=== PATIENT | female | born 1940 | race Caucasian/White ===

== ENCOUNTER 2019-02-09 12:27 | Inpatient (IN) | payer MEDICARE ==
[2019-02-09] MEDS ORDERED: SODIUM CHLORIDE 0.9% 1,000 ML IV STA (13:32)
--- NOTE | 2019-02-09 13:35 | ED ---
General Adult HPI - General Chief complaint: Altered Mental Status Stated complaint: Confusion, poss Stroke Time Seen by Provider: 02/09/19 13:08 Source: patient Mode of arrival: ambulatory Limitations: no limitations - History of Present Illness Initial comments: Dictation was produced using Digiting dictation software. please excuse any grammatical, word or spelling errors. Chief Complaint: 78-year-old female presents today for forgetfulness. History of Present Illness: 78-year-old female presents today for altered mental status. She is brought in by grandson and . Patient has been increasingly forgetful for the last couple days. According grandson and patient has been having increasing moments of forgetfulness. For example, patient would be asking repetitive questions about them item that she supposedly put away. Patient is aware that she ask a lot of questions. Patient was recently diagnosed with iron deficiency anemia. She was given iron injections at her PCPs office. Patient denies any neck pain. No constitutional symptoms. Denies any focal neurologic deficits. The ROS documented in this emergency department record has been reviewed and confirmed by me. Those systems with pertinent positive or negative responses have been documented in the HPI. All other systems are other negative and/or noncontributory. PHYSICAL EXAM: General Impression: Alert and oriented x3, not in acute distress HEENT: Normocephalic atraumatic, extra-ocular movements intact, pupils equal and reactive to light bilaterally, mucous membranes moist, bilateral conjunctivitis Cardiovascular: Heart regular rate and rhythm, S1&S2 audible, no murmurs, rubs or gallops Chest: Lungs clear to auscultation bilaterally, no rhonchi, no wheeze, no rales Abdomen: Bowel sounds present, abdomen soft, non-tender, non-distended, no organomegaly Musculoskeletal: Pulses present and equal in all extremities, no peripheral edema Motor: no focal deficits noted Neurological: CN II-XII grossly intact, no focal motor or sensory deficits noted, no dysarthria, follows commands, no slurred speech Skin: Intact with no visualized rashes Psych: Normal affect and mood ED course: 78-year-old female presents with chief complaint of forgetfulness. Vital signs upon arrival are within acceptable limits Laboratory evaluation obtained. CBC is unremarkable. Hemoglobin stable. No leukocytosis. Metabolic panel shows sodium of 126, potassium 5.3, glucose of 106. Urinalysis is negative. Computed tomography scan of the brain shows no significant acute processes. There does appear to be moderate confluent changes of chronic small vessel ischemic disease. Given patient's degree of hyponatremia believe she'll benefit from short inpatient stay for sodium correction and repeat sodium level. Patient was given intravenous fluids. Patient began complaining about her conjunctivitis. More history was obtained concerning her bilateral conjunctivitis. She states that pain is worse in her right eye with light however she has conjunctivitis in both eyes. She reports improvement of her symptoms in the dark. She believes that this is from a recent iron supplementation. We will have ophthalmology on consult. - Related Data Allergies Allergy/AdvReac Type Severity Reaction Status Date / Time latex Allergy Unknown Verified 02/09/19 12:35 Sulfa (Sulfonamide Allergy Unknown Verified 02/09/19 12:35 Antibiotics) Review of Systems ROS Statement: Those systems with pertinent positive or pertinent negative responses have been documented in the HPI. ROS Other: All systems not noted in ROS Statement are negative. Past Medical History Past Medical History: Asthma, Hypertension, Thyroid Disorder History of Any Multi-Drug Resistant Organisms: None Reported Past Surgical History: Orthopedic Surgery Past Psychological History: No Psychological Hx Reported Smoking Status: Never smoker Past Alcohol Use History: Occasional Past Drug Use History: None Reported General Exam Limitations: no limitations Course Vital Signs 02/09/19 12:32 Temperature 97.8 F Pulse Rate 95 Respiratory 19 Rate Blood Pressure 127/80 O2 Sat by Pulse 95 Oximetry Medical Decision Making - Lab Data Result diagrams: 02/09/19 13:40 02/09/19 13:40 Lab Results 02/09/19 02/09/19 02/09/19 Range/Units 13:40 13:40 13:40 WBC 7.3 (3.8-10.6) k/uL RBC 3.20 L (3.80-5.40) m/uL Hgb 11.0 L (11.4-16.0) gm/dL Hct 32.9 L (34.0-46.0) % MCV 102.7 H (80.0-100.0) fL MCH 34.4 (25.0-35.0) pg MCHC 33.5 (31.0-37.0) g/dL RDW 12.8 (11.5-15.5) % Plt Count 548 H (150-450) k/uL Neutrophils % 73 % Lymphocytes % 17 % Monocytes % 5 % Eosinophils % 2 % Basophils % 0 % Neutrophils # 5.3 (1.3-7.7) k/uL Lymphocytes # 1.3 (1.0-4.8) k/uL Monocytes # 0.3 (0-1.0) k/uL Eosinophils # 0.1 (0-0.7) k/uL Basophils # 0.0 (0-0.2) k/uL Macrocytosis Slight Sodium 126 L (137-145) mmol/L Potassium 5.3 H (3.5-5.1) mmol/L Chloride 92 L (98-107) mmol/L Carbon Dioxide 26 (22-30) mmol/L Anion Gap 8 mmol/L BUN 14 (7-17) mg/dL Creatinine 0.74 (0.52-1.04) mg/dL Est GFR (CKD-EPI)AfAm 90 (>60 ml/min/1.73 sqM) Est GFR (CKD-EPI)NonAf 78 (>60 ml/min/1.73 sqM) Glucose 106 H (74-99) mg/dL Plasma Lactic Acid Keo 1.1 (0.7-2.0) mmol/L Calcium 9.0 (8.4-10.2) mg/dL Magnesium 2.1 (1.6-2.3) mg/dL Urine Color Urine Appearance (Clear) Urine pH (5.0-8.0) Ur Specific [place] (1.001-1.035) Urine Protein (Negative) Urine Glucose (UA) (Negative) Urine Ketones (Negative) Urine Blood (Negative) Urine Nitrite (Negative) Urine Bilirubin (Negative) Urine Urobilinogen (<2.0) mg/dL Ur Leukocyte Esterase (Negative) 02/09/19 Range/Units 14:35 WBC (3.8-10.6) k/uL RBC (3.80-5.40) m/uL Hgb (11.4-16.0) gm/dL Hct (34.0-46.0) % MCV (80.0-100.0) fL MCH (25.0-35.0) pg MCHC (31.0-37.0) g/dL RDW (11.5-15.5) % Plt Count (150-450) k/uL Neutrophils % % Lymphocytes % % Monocytes % % Eosinophils % % Basophils % % Neutrophils # (1.3-7.7) k/uL Lymphocytes # (1.0-4.8) k/uL Monocytes # (0-1.0) k/uL Eosinophils # (0-0.7) k/uL Basophils # (0-0.2) k/uL Macrocytosis Sodium (137-145) mmol/L Potassium (3.5-5.1) mmol/L Chloride (98-107) mmol/L Carbon Dioxide (22-30) mmol/L Anion Gap mmol/L BUN (7-17) mg/dL Creatinine (0.52-1.04) mg/dL Est GFR (CKD-EPI)AfAm (>60 ml/min/1.73 sqM) Est GFR (CKD-EPI)NonAf (>60 ml/min/1.73 sqM) Glucose (74-99) mg/dL Plasma Lactic Acid Keo (0.7-2.0) mmol/L Calcium (8.4-10.2) mg/dL Magnesium (1.6-2.3) mg/dL Urine Color Light Yellow Urine Appearance Clear (Clear) Urine pH 6.0 (5.0-8.0) Ur Specific [place] 1.004 (1.001-1.035) Urine Protein Negative (Negative) Urine Glucose (UA) Negative (Negative) Urine Ketones Negative (Negative) Urine Blood Negative (Negative) Urine Nitrite Negative (Negative) Urine Bilirubin Negative (Negative) Urine Urobilinogen <2.0 (<2.0) mg/dL Ur Leukocyte Esterase Negative (Negative) Disposition Clinical Impression: Hyponatremia Disposition: ADMITTED IP TO THIS HOSP Condition: Fair Referrals: Hua Estrella MD [Primary Care Provider] - 1-2 days Decision Time: 15:28
--- NOTE | 2019-02-09 13:50 | XR ---
EXAMINATION TYPE: XR chest 1V portable DATE OF EXAM: 02/09/2019 Comparison: None Clinical History: 78-year-old female confusion, altered mental status Findings: Heart normal size. Tortuosity versus ectasia of the thoracic aorta. Mild interstitial prominence of t he chronic appearance. Strandy atelectasis right lower lung. No consolidation or pleural effusion. Impression: Chronic-appearing changes. Tortuous versus ectatic thoracic aorta. No definite acute cardiopulmonary process.
[2019-02-09 13:54] LABS: Basophils % (A) 0 %; Eosinophils # (A) 0.1 k/uL (0-0.7); Eosinophils % (A) 2 %; HCT 32.9 % (34.0-46.0); Lymphocytes # (A) 1.3 k/uL (1.0-4.8); Lymphocytes % (A) 17 %; MCH 34.4 pg (25.0-35.0); MCHC 33.5 g/dL (31.0-37.0); MCV 102.7 fL (80.0-100.0); Macrocytosis Slight; Monocytes # (A) 0.3 k/uL (0-1.0); Monocytes % (A) 5 %; Neutrophils # (A) 5.3 k/uL (1.3-7.7); Neutrophils % (A) 73 %; Platelet Count 548 k/uL (150-450); RDW 12.8 % (11.5-15.5); WBC 7.3 k/uL (3.8-10.6)
[2019-02-09 13:59] LABS: Magnesium 2.1 mg/dL (1.6-2.3); Potassium 5.3 mmol/L (3.5-5.1)
--- NOTE | 2019-02-09 14:19 | CT ---
EXAMINATION TYPE: CT brain wo con DATE OF EXAM: 02/09/2019 COMPARISON: None HISTORY: 78-year-old female Confusion, possible stroke TECHNIQUE: Examination was done in axial plane without intravenous contrast. Coronal and sagittal r econstructions performed. CT DLP: 1091.4 mGycm Automated exposure control for dose reduction was used. FINDINGS: There is no evidence of acute intracranial hemorrhage, acute ischemic changes, mass, mass-effect, or extra-axial fluid collection. There is no effacement of cerebral sulci or basal subarachnoid cister ns. There is no hydrocephalus. There is no midline shift. Carrera-white matter distinction is preserv ed. Partially empty sella. Moderate confluent white matter hypodensities in both cerebral hemispheres. Paranasal sinuses and mastoid air cells well pneumatized. Orbits and globes are intact. IMPRESSION: Moderate confluent changes of chronic small vessel ischemic disease. No acute intracranial abnormalit y seen. If concern for subtle acute ischemia, follow-up MRI.
[2019-02-09 15:01] LABS: Appearance,Urine Clear (Clear); Bilirubin,Urine Negative (Negative); Blood,Urine Negative (Negative); Color,Urine Light Yellow; Glucose,Urine (UA) Negative (Negative); Ketones,Urine Negative (Negative); Leukocyte Esterase,Urine Negative (Negative); Nitrite,Urine Negative (Negative); Protein,Urine Negative (Negative); Specific Gravity,Urine 1.004 (1.001-1.035); Urobilinogen,Urine <2.0 mg/dL (<2.0)
[2019-02-09] MEDS ORDERED: ONDANSETRON 4 MG/2 ML VIAL IVP PRN (15:28)
[2019-02-09] MEDS ORDERED: ACETAMINOPHEN TAB 325 MG TAB PO PRN (15:28)
[2019-02-09] MEDS ORDERED: NALOXONE 0.4 MG/ML 1 ML VIAL IV PRN (15:28)
[2019-02-09] MEDS ORDERED: SODIUM CHLORIDE 0.9% 1,000 ML IV SCH (15:30)
[2019-02-09] MEDS ORDERED: ARTIFICIAL TEARS OINTMENT 3.5 GM TUBE BOTH EYES PRN (16:25)
[2019-02-09] MEDS ORDERED: ALBUTEROL NEBULIZED 2.5 MG/3 ML INHALATION PRN (16:28)
--- NOTE | 2019-02-09 17:25 | P.HPIM ---
History of Present Illness Chief Complaint: Generalized weakness 78 year female with history of hypertension and hypothyroidism who complains of generalized weakness. Her history starts last week when she was feeling increasingly weak and low vega rgy low stamina. She did not have any chest pain shortness of breath nausea vomiting diarrhea fever chills URI like symptoms or dysuria. She went to her primary care physician where basic blood work was done. 4 days prior to this admission she was told that her iron and sodium is low and she received infusion of iron in her PCPs office. Day prior to this, this last weekend she started developing some scratchy feeling in her left eye and next morning she woke up with both eye redness itchiness scratchiness discomfort and drainage of clear fluid. There is no any purulent drainage. There is no crusting. There is no pain in the eyes. There is no vision changes. She denied any malaise or sore throat any other symptoms. Since her symptoms persisted her family was concerned and brought her to emergency Department. Per them they feel that over the last week or so patient also became forgetful and appears very weak. Patient herself denies any forgetfulness or any confusion. She is orientated to time and date. Next blood work in emergency department show sodium 126. Glucose was very mildly elevated. Labwork about a week ago and PCPs office show sodium 123. Patient is on levothyroxine. TSH was not checked. She also had elevated sedimentation rate is 73. Mild stable anemia. CT of the head showed microvascular disease no acute changes. Patient denies any new medications or changes in those medications. She reports drinking one whiskey every other day otherwise. She denies any leg weakness tremors orthostatic lightheadedness. Patient denies any vision changes. Patient denies any headache orthostatic lightheadedness. She denies any musculoskeletal pain or muscle soreness or weakness. Review of Systems Review of system was performed and is negative except mentioned in HPI Past Medical History Past Medical History: Asthma, Hypertension, Thyroid Disorder History of Any Multi-Drug Resistant Organisms: None Reported Past Surgical History: Orthopedic Surgery Past Psychological History: No Psychological Hx Reported Smoking Status: Never smoker Past Alcohol Use History: Occasional Past Drug Use History: None Reported Medications and Allergies Home Medications Medication Instructions Recorded Confirmed Type Albuterol Inhaler [Ventolin Hfa 2 puff INHALATION RT-Q4H PRN 02/09/19 02/09/19 History Inhaler] Ascorbic Acid [Vitamin C] 500 mg PO DAILY PRN 02/09/19 02/09/19 History Fluticasone/Salmeterol [Advair 1 puff INHALATION RT-BID 02/09/19 02/09/19 History 100-50 Diskus] Ibuprofen [Motrin] 800 mg PO TID PRN 02/09/19 02/09/19 History Levothyroxine Sodium [Synthroid] 150 mcg PO DAILY 02/09/19 02/09/19 History Lisinopril [Zestril] 20 mg PO DAILY 02/09/19 02/09/19 History Magnesium Citrate 150mg 150 mg PO DAILY 02/09/19 02/09/19 History Papaya [Papaya Enzyme] 1 tab PO AC-TID 02/09/19 02/09/19 History Wheat Dextrin [Benefiber] 1 packet PO DAILY 02/09/19 02/09/19 History Allergies Allergy/AdvReac Type Severity Reaction Status Date / Time latex Allergy Rash/Hives Verified 02/09/19 16:10 Sulfa (Sulfonamide Allergy Rash/Hives Verified 02/09/19 16:10 Antibiotics) Physical Exam Vitals: Vital Signs Temp Pulse Resp BP Pulse Ox 02/09/19 12:32 97.8 F 95 19 127/80 95 Intake and Output 02/09/19 02/09/19 02/09/19 06:59 14:59 22:59 Other: Weight 72.575 kg Vital Signs: I have reviewed the vital signs. GENERAL: Well-nourished, Well-developed , no apparent distress, cooperative Eyes: PERRL, extraoculry movements intact, conjunctiva is diffusely red without any suffusion, pupils are round and reactive to light bilaterally, there is no any mucopurulent or any other exudates, no foreign bodies, extraocular movements could not elicit any pain, she does not have any significant photophobia, periorbital tissues are not swollen red or inflamed Head: : Atraumatic external nose and ears, oropharyngeal mucosa is moist without lesions or exudates Neck: Symmetric, trachea midline, No thyromegaly, no masses or neck vain pulsation, no neck rigidity CVS: +S1/S2, No murmurs or gallops. Peripheral pulses 2+ and equal in all extremities. RESP: Unlabored respiratory effort. Clear to auscultation bilaterally. Abdomen: Bowel sounds present in all 4 quadrants, Soft to palpation, Nontender/Nondistended, No hepatosplenomegaly, no hernias or masses, no CVA tnderness Musculoskeletal: Extremities w/o deformity, No cyanosis or clubbing, no joint swelling Skin: Warm, Dry. 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, motor strenght 5/5 i upper and lower extremities, no clonus, patellar DTRs 2+ and sympetrical Psych: Awake, Alert, & Oriented (AAO) x3 Appropriate mood and affect Results CBC & Chem 7: 02/09/19 13:40 02/09/19 13:40 Labs: Abnormal Lab Results - Last 24 Hours (Table) 02/09/19 02/09/19 Range/Units 13:40 13:40 RBC 3.20 L (3.80-5.40) m/uL Hgb 11.0 L (11.4-16.0) gm/dL Hct 32.9 L (34.0-46.0) % MCV 102.7 H (80.0-100.0) fL Plt Count 548 H (150-450) k/uL Sodium 126 L (137-145) mmol/L Potassium 5.3 H (3.5-5.1) mmol/L Chloride 92 L (98-107) mmol/L Glucose 106 H (74-99) mg/dL Assessment and Plan Assessment: This is a 78-year-old female who is presenting with progressive generalized weakness and slowing of mentation. Her sodium is low and she has history of hypothyroidism. Her neurological exam is nonfocal. She has a very good recall on 3 objects and count is down from 100 subtracting by 3 without any issues. She is alert and awake oriented 3. She has microvascular disease on the CAT scan of the head. 1. generalized weakness Clinically appears to be due to hyponatremia, rule out any underlying end ocrinological or metabolic or rheumatological process I discussed with family in detail. We will try to address and correct her hyponatremia as possible cause of generalized weakness. Workup of hyponatremia will include serum and urine osmolarity, urine sodium and potassium, obviously TSH and cortisol level. I do not see any thiazides all her home medication list or the family started me that she is on Hyzaar normally. Patient has mild hyperkalemia. Bicarbonate level is normal. We did order a.m. cortisol. Her vital signs have been stable as well. Patient does not appear septic. Family was inquiring about possibility of neurological etiology behind her generalized weakness. I explained him that we do not have neurological consultation currently in the hospital. I explained him that I would like to go down the Route of correcting her electrolyte possibly other metabolic or endocrinological abnormalities and then to reevaluate the patient. Her immediate imaging and neurological exam is nonfocal Nephrology has been consulted to assist with hyponatremia Patient was started on normal saline emergency department, I will continue this at slightly lower rate and check her sodium today to see how she is responding to fluids A part of the concern is patient's elevated sedimentation rate last week on the blood work at her PCPs office. She does not have any headache or musculoskeletal pain. Except conjunctivitis no obvious focal infections I will repeat her sedimentation rate and CPR 2. Conjunctivitis History of physical exam consistent more with conjunctival involvement. Suspect viral conjunctivitis. Swab for cultures has been ordered eye decongestion and lubricants ordered Ophthalmology has been consulted 3. Hypothyroidism Continue home levothyroxine Obviously we'll check her TSH in the setting of new hyponatremia 4. Hypertension Blood pressure has been stable We will hold EVITA inhibitor for now 5. Possible dementia Patient did quite well on the quick recall test She has microvascular disease the CT of the brain Neurologic exam is nonfocal no rigidity no involuntary movements Once we correct sodium patient will be reevaluated and I would defer patient for neurological follow-up was on outpatient basis 6. Anemia Recently found to have iron deficiency and receive iron infusion and referred for EGD and colonoscopy No actively clinically signs of bleeding I will check B12 since MCV slightly elevated Patient is a full code is surrogate decision maker 2 or more midnights stay may be expected In discussing detailed plan of care with patient's family including her , daughter and grandson.
[2019-02-09] MEDS: SODIUM CHLORIDE 0.9% 1,000 ML IV SCH ×2 (17:42→20:36)
[2019-02-09 18:35] LABS: T4, Free (Free Thyroxine) 1.15 ng/dL (0.78-2.19)
[2019-02-09] MEDS ORDERED: ARTIFICIAL TEARS-HYPROMELLOSE DROPS 15 ML BTL BOTH EYES PRN (19:25)
--- NOTE | 2019-02-09 19:35 | P.CON ---
Consult Note - . Consult date: 02/09/19 Assessment/Plan:: 78 y/o female with new onset of discomfort and photophobia for the last 3 days in the left eye. The eye has been red and irritated. She denies any injury or discharge or recent URI. There is no previous eye surgery in either eye or unde rlying eye problems. She last saw her director web 2 months ago for an update in glasses. Va w/correction 20/25+3, OD 20/20-2 OS IOP: @ 1900 tonopen, 07 mm Hg OD, 13 mm Hg OS Ext: unremarkable. PA nodes and SM nodes smooth EOM: full conj: trace injection OD, 1+ ciliary flush left. Cornea: clear with SPk 2+ using fluorescein AC: D&Q OD, trace cell OS Iris: miosis, OS? nondilated fundus: Vit: PVD OU fundus: grossly normal A: 1) OS iritis, unknown etiology 2) dry eye, with SPK OU, P: 1) begin topical steroid treatment in left eye 2) add topical artificial tears frequently and regularly 3) when discharged recommend follow up in office early next week. 4) thank you for this consultation.
[2019-02-09] MEDS: NAPHAZOLINE-PHENIRA 0.025-0.3% DROPS 15 ML BTL BOTH EYES SCH (20:31)
[2019-02-09 20:36] LABS: Calcium 8.7 mg/dL (8.4-10.2); Potassium 4.7 mmol/L (3.5-5.1)
[2019-02-09] MEDS: prednisoLONE ACETATE 1% OPHTH DROPS 5 ML BTL LEFT EYE SCH (20:40)
[2019-02-09] MEDS: SYMBICORT 80-4.5 MCG INHALER INHALATION SCH (21:29)
[2019-02-10] MEDS: prednisoLONE ACETATE 1% OPHTH DROPS 5 ML BTL LEFT EYE SCH ×5 (00:23→23:37)
[2019-02-10] MEDS: LEVOTHYROXINE 75 MCG TAB PO SCH (06:11)
[2019-02-10] MEDS: SYMBICORT 80-4.5 MCG INHALER INHALATION SCH ×2 (07:12→19:17)
[2019-02-10] MEDS: NAPHAZOLINE-PHENIRA 0.025-0.3% DROPS 15 ML BTL BOTH EYES SCH (08:33)
[2019-02-10 09:07] LABS: African American GFR (CKD) >90 (>60 ml/min/1.73 sqM); Anion Gap 7 mmol/L; Blood Urea Nitrogen 9 mg/dL (7-17); C Reactive Protein 49.4 mg/L (<10.0); Calcium 8.8 mg/dL (8.4-10.2); Carbon Dioxide 26 mmol/L (22-30); Chloride 94 mmol/L (98-107); Glucose 102 mg/dL (74-99); Non-African American GFR(CKD) 82 (>60 ml/min/1.73 sqM); Potassium 5.5 mmol/L (3.5-5.1); Sodium 127 mmol/L (137-145)
--- NOTE | 2019-02-10 09:33 | P.PN ---
Subjective Patient is doing well this morning. sHe denies any weakness or malaise. Given that her inflammatory markers are quite elevated and in conjunction with wood club neck whipper diagnosis of anterior uveitis with went over any musculoskeletal or GI symptomatology especially in view of recently diagnosed iron deficiency without any overt bleeding. Patient denies any abdominal bloating, pain or diarrhea or blood in the stool or vomiting. She denies any history of GI problems in the family. She denies any joint swelling or morning stiffness. Denies any headaches or jaw claudications. She reports stable weight and appetite without any significant weight loss. Denies any night sweats. Her sodium is slowly improving, she has resistant mild hyperkalemia and bicarbs has been stable. Objective - Vital Signs Vital signs: Vital Signs Temp 98.4 F 02/10/19 05:00 Pulse 85 02/10/19 05:00 Resp 18 02/10/19 05:00 BP 118/73 02/10/19 05:00 Pulse Ox 97 02/10/19 05:00 Intake & Output 02/09/19 02/10/19 02/10/19 18:59 06:59 18:59 Intake Total 390 850 Balance 390 850 Weight 72.575 kg Intake: Oral 390 850 Other: Voiding Method Toilet # Voids 2 1 # Bowel Movements 1 - Exam Vital Signs: I have reviewed the vital signs. GENERAL: Well-nourished, Well-developed , no apparent distress, cooperative Eyes: PERRL, extraoculry movements intact, clear conjunctiva Head: : Atraumatic external nose and ears, oropharyngeal mucosa is moist without lesions or exudates Neck: Symmetric, trachea midline, No thyromegaly, no masses or neck vain pulsation, no neck rigidity CVS: +S1/S2, No murmurs or gallops. Peripheral pulses 2+ and equal in all extremities. RESP: Unlabored respiratory effort. Clear to auscultation bilaterally. Abdomen: Bowel sounds present in all 4 quadrants, Soft to palpation, Nontender/Nondistended, No hepatosplenomegaly, no hernias or masses, no CVA tnderness Musculoskeletal: Extremities w/o deformity, No cyanosis or clubbing, no joint swelling Skin: Warm, Dry. 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, motor strenght 5/5 i upper and lower extremities, no clonus, patellar DTRs 2+ and sympetrical Psych: Awake, Alert, & Oriented (AAO) x3 Appropriate mood and affect - Labs CBC & Chem 7: 02/09/19 13:40 02/10/19 07:59 Labs: Abnormal Lab Results - Last 24 Hours (Table) 02/09/19 02/09/19 02/09/19 Range/Units 13:14 13:40 13:40 RBC 3.20 L (3.80-5.40) m/uL Hgb 11.0 L (11.4-16.0) gm/dL Hct 32.9 L (34.0-46.0) % MCV 102.7 H (80.0-100.0) fL Plt Count 548 H (150-450) k/uL Sodium 126 L (137-145) mmol/L Potassium 5.3 H (3.5-5.1) mmol/L Chloride 92 L (98-107) mmol/L Glucose 106 H (74-99) mg/dL Osmolality 264 L (280-301) mosm/kg C-Reactive Protein (<10.0) mg/L TSH 6.320 H (0.465-4.680) mIU/L 02/09/19 02/10/19 Range/Units 19:55 07:59 RBC (3.80-5.40) m/uL Hgb (11.4-16.0) gm/dL Hct (34.0-46.0) % MCV (80.0-100.0) fL Plt Count (150-450) k/uL Sodium 128 L 127 L (137-145) mmol/L Potassium 5.5 H (3.5-5.1) mmol/L Chloride 95 L 94 L (98-107) mmol/L Glucose 113 H 102 H (74-99) mg/dL Osmolality (280-301) mosm/kg C-Reactive Protein 49.4 H (<10.0) mg/L TSH (0.465-4.680) mIU/L Assessment and Plan Assessment: 1. generalized weakness This is much improved Given the constellation of hyponatremia and mild hyperkalemia, anterior uveitis, elevated CRP and sedimentation rate I had a lengthy discussion with the patient and her about possibility of more systemic inflammatory illness in form of rheumatological or malignancy. We also discussed possibility of underlying endocrinological problem like adrenal. Plan is to continue treatment for hyponatremia as per nephrology recommendation Serum cortisol, aldosterone and renin activity pending Nothing clinically indicated presence of inflammatory bowel disease or seronegative arthropathy. I recommended patient to have a follow-up on outpatient basis with rheumatology upon discharge. She is already being scheduled for EGD and colonoscopy due to iron deficiency. Gender and age appropriate malignancy screening to be conducted to [facility] office. Check TTG IgA. 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 Discontinue Naphcon A 3. Hypothyroidism Continue home levothyroxine TSH is at acceptable level for patient age. Would recommend repeating TSH in 4- 6 weeks to assure stability. 4. Hypertension Blood pressure has been stable 5. Possible dementia Patient did quite well on the quick recall test She has microvascular disease the CT of the brain Neurologic exam is nonfocal no rigidity no involuntary movements Once we correct sodium patient will be reevaluated and I would defer patient for neurological follow-up was on outpatient basis Speech therapist consulted for cognitive evaluation 6. Anemia Recently found to have iron deficiency and receive iron infusion and referred for EGD and colonoscopy No actively clinically signs of bleeding I will check B12 since MCV slightly elevated Discharge planning in 1-2 days based on the sodium correction
--- NOTE | 2019-02-10 10:46 | P.NPCON ---
History of Present Illness - Reason for Consult hyponatremia - History of Present Illness Reason for consultation: Hyponatremia History of present illness: Patient is a 78-year-old female seen in renal consultation for hyponatremia. Patient presented to the hospital with generalized weakness. Patient states her legs felt weak and she was able to get off from her chair. She denies losing consciousness. No falls or syncopal episodes. Patient's sodium level was 126 on admission and did improve to 128 as of yesterday evening at 8 PM. This morning sodium level is stable at 127. Patient is maintained on normal saline at 75 mL an hour. She did receive 1 L bolus of normal saline on admission. Anne Marie prado states she does drink quite a bit of fluids including water and coffee. Her oral intake has been fair. She doesn't like to eat meats. Denies vomiting or diarrhea. Admits to good urine output. No hematuria or dysuria. Denies taking any thiazide diuretics. She denies use of nonsteroidals. No history of malignancy. She does have history of hypothyroidism and is maintained on Synthroid. Hemodynamically she is stable. No significant hypotension. GFR is at baseline. Denies family history of renal disease. Vital signs are stable. General: The patient appeared well nourished and normally developed. HEENT: Head exam is unremarkable. Neck is without jugular venous distension. LUNGS: Lungs are clear to auscultation and percussion. Breath sounds decreased. HEART: Rate and Rhythm are regular. First and second heart sounds normal. No murmurs, rubs or gallops. ABDOMEN: Abdominal exam reveals normal bowel sounds. Non-tender and non- distended. No evidence of peritonitis. EXTREMITITES: No clubbing, cyanosis, or edema. Past Medical History Past Medical History: Asthma, Hypertension, Thyroid Disorder History of Any Multi-Drug Resistant Organisms: None Reported Past Surgical History: Orthopedic Surgery Additional Past Surgical History / Comment(s): lt knee replacement Past Anesthesia/Blood Transfusion Reactions: No Reported Reaction Additional Past Anesthesia/Blood Transfusion Reaction / Comment(s): No blood products!!!!!!!!!!!!! Past Psychological History: No Psychological Hx Reported Smoking Status: Never smoker Past Alcohol Use History: Occasional Past Drug Use History: None Reported - Past Family History Son(s) Family Medical History: Diabetes Mellitus Medications and Allergies Home Medications Medication Instructions Recorded Confirmed Type Albuterol Inhaler [Ventolin Hfa 2 puff INHALATION RT-Q4H PRN 02/09/19 02/09/19 History Inhaler] Ascorbic Acid [Vitamin C] 500 mg PO DAILY PRN 02/09/19 02/09/19 History Fluticasone/Salmeterol [Advair 1 puff INHALATION RT-BID 02/09/19 02/09/19 History 100-50 Diskus] Ibuprofen [Motrin] 800 mg PO TID PRN 02/09/19 02/09/19 History Levothyroxine Sodium [Synthroid] 150 mcg PO DAILY 02/09/19 02/09/19 History Lisinopril [Zestril] 20 mg PO DAILY 02/09/19 02/09/19 History Magnesium Citrate 150mg 150 mg PO DAILY 02/09/19 02/09/19 History Papaya [Papaya Enzyme] 1 tab PO AC-TID 02/09/19 02/09/19 History Wheat Dextrin [Benefiber] 1 packet PO DAILY 02/09/19 02/09/19 History Allergies Allergy/AdvReac Type Severity Reaction Status Date / Time latex Allergy Rash/Hives Verified 02/09/19 16:10 Sulfa (Sulfonamide Allergy Rash/Hives Verified 02/09/19 16:10 Antibiotics) Physical Exam Vitals: Vital Signs Temp Pulse Pulse Resp BP BP Pulse Ox 02/10/19 05:00 98.4 F 85 18 118/73 97 02/09/19 21:00 98.5 F 91 18 143/81 100 02/09/19 12:32 97.8 F 95 19 127/80 95 Intake and Output 02/09/19 02/10/19 02/10/19 22:59 06:59 14:59 Intake Total 790 450 Balance 790 450 Intake: Oral 790 450 Other: Voiding Method Toilet # Voids 1 2 1 # Bowel Movements 1 Weight 72.575 kg Results - Lab Results Most recent lab results Calcium 8.8 mg/dL (8.4-10.2) 02/10/19 07:59 Magnesium 2.1 mg/dL (1.6-2.3) 02/09/19 13:40 02/09/19 13:40 02/10/19 07:59 Assessment and Plan Plan: Assessment: 1. Hypotonic hyponatremia. Mildly hypovolemic and initially improved with IV fluids from 126 to 128. It is 127 this morning. Cortisol level noted to be normal this morning. TSH mildly elevated and is currently maintained on Synthroid. Urine osmolality noted to be low at 156. 2. Hypothyroidism maintained on Synthroid. 3. Benign hypertension. Controlled. 4. Mild hyperkalemia secondary to use of lisinopril. Plan: 1200 mL fluid restriction. Encourage oral intake, including protein. Add ensure 3 times daily. Hep-Lock IV fluids. Repeat electrolytes in the morning. Check urine sodium and uric acid level. Thank you for the consultation. I will continue to follow the patient with you during her hospital stay.
[2019-02-10 11:07] LABS: Urine Alcohol Negative (Negative); Urine Barbiturate Negative (Negative); Urine Cocaine Negative (Negative); Urine Methadone Negative (Negative); Urine Opiates Negative (Negative); Urine Phencyclidine Negative (Negative)
[2019-02-10 18:09] LABS: African American GFR (CKD) >90 (>60 ml/min/1.73 sqM); Anion Gap 7 mmol/L; Blood Urea Nitrogen 15 mg/dL (7-17); Calcium 9.1 mg/dL (8.4-10.2); Carbon Dioxide 29 mmol/L (22-30); Chloride 95 mmol/L (98-107); Glucose 123 mg/dL (74-99); Non-African American GFR(CKD) 83 (>60 ml/min/1.73 sqM); Potassium 5.1 mmol/L (3.5-5.1); Sodium 131 mmol/L (137-145)
[2019-02-11] MEDS: prednisoLONE ACETATE 1% OPHTH DROPS 5 ML BTL LEFT EYE SCH ×3 (06:21→17:35)
[2019-02-11] MEDS: LEVOTHYROXINE 75 MCG TAB PO SCH (06:22)
[2019-02-11 08:37] LABS: Magnesium 2.3 mg/dL (1.6-2.3); Potassium 5.4 mmol/L (3.5-5.1)
[2019-02-11] MEDS: SYMBICORT 80-4.5 MCG INHALER INHALATION SCH (10:06)
--- NOTE | 2019-02-11 10:24 | P.PN ---
Subjective Summary: Patient 78-year-old female without significant past medical history presented due to worsening fatigue, generalized weakness , mild confusion and bilateral red eyes. She was found to have sodium of 126. 2 days prior to the admission sodium in her PCP office was 123. She did not appear grossly dehydrated. She was not on any particular medications associated with hyponatremia. She did not have any particular focal complaints or symptoms. She reports drinking at least 4 small bottles of water. She does not eat much of meat cheese and eggs or drink milk. She was recently diagnosed with iron deficiency and scheduled for colonoscopy. She was started on normal saline with slow improvement in her sodium. Interval history: Patient sodium is 130 this morning. She reports good urine output. She reports that her energy level is much better and per family she seems to be at baseline. We had a lengthy discussion about patient's plan of care. I entertained with the family my concern over her high sedimentation rate. Given the patient does not have any particular focal symptoms or complaints I advised patient and her family in the room that patient needs close follow-up with nephrology an PCP and outpatient and further investigation about her low sodium and elevated sedime ntation rate. She will have colonoscopy soon. Also recommended mammogram. Also given the history of smoking I recommended patient to obtain CT of the chest abdomen and pelvis with her PCP on outpatient basis. Also recommended follow-up with rheumatology and repeat sedimentation rate and CRP. Also patient was advised to decrease amount of water that she's drinking at home and to increase protein intake by adding one or 2 Ensures per day, 3 to more milk cheese meat and eggs. Objective - Vital Signs Vital signs: Vital Signs Temp 98.2 F 02/11/19 05:26 Pulse 83 02/11/19 05:26 Resp 15 02/11/19 05:26 BP 107/65 02/11/19 05:26 Pulse Ox 95 02/11/19 05:26 Intake & Output 02/10/19 02/11/19 02/11/19 18:59 06:59 18:59 Other: Voiding Method Toilet # Voids 2 1 - Exam Vital Signs: I have reviewed the vital signs. GENERAL: Well-nourished, Well-developed , no apparent distress, cooperative Eyes: PERRL, extraoculry movements intact, clear conjunctiva Head: : Atraumatic external nose and ears, oropharyngeal mucosa is moist without lesions or exudates Neck: Symmetric, trachea midline, No thyromegaly, no masses or neck vain pulsation, no neck rigidity CVS: +S1/S2, No murmurs or gallops. Peripheral pulses 2+ and equal in all extremities. RESP: Unlabored respiratory effort. Clear to auscultation bilaterally. Abdomen: Bowel sounds present in all 4 quadrants, Soft to palpation, Nontender/Nondistended, No hepatosplenomegaly, no hernias or masses, no CVA tnderness Musculoskeletal: Extremities w/o deformity, No cyanosis or clubbing, no joint swelling Skin: Warm, Dry. No rashes or lesions Neuro: printer technician II-XII grossly intact, motor strenght 5/5 i upper and lower extremities, no clonus, patellar DTRs 2+ and sympetrical Psych: Awake, Alert, & Oriented (AAO) x3 Appropriate mood and affect - Labs CBC & Chem 7: 02/09/19 13:40 02/11/19 07:47 Labs: Abnormal Lab Results - Last 24 Hours (Table) 02/10/19 02/10/19 02/11/19 Range/Units 07:59 17:42 07:47 ESR 97 H (0-20) mm/hr Sodium 131 L 130 L (137-145) mmol/L Potassium 5.4 H (3.5-5.1) mmol/L Chloride 95 L 97 L (98-107) mmol/L Glucose 123 H (74-99) mg/dL Microbiology - Last 24 Hours (Table) 02/10/19 17:20 Gram Stain - Preliminary Eye - Left Eye Culture - Preliminary Assessment and Plan Assessment: 1. Hyponatremia Nephrology is following Slowly improving Patient appears euvolemic today. 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 I also advised her to continue with that at home as well I had a lengthy discussion with the patient and her family about trying to find a cause of her hyponatremia and significantly elevated sedimentation rate and CRP. Since she has no particular focal symptoms. recommend following up with systems technician on outpatient basis. Recommend CT of the chest abdomen and pelvis especially in view of history of smoking which should be done on outpatient basis. Patient will have colonoscopy soon which is scheduled for her. I clearly informed the patient and family that there is a possibility of malignancy, rheumatological disease or inflammatory bowel disease that can conne ct her elevated sedimentation rate, anterior uveitis and hyponatremia. 2. 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 Discontinue Naphcon A 3. Hypothyroidism Continue home levothyroxine Tsh is 6 This is acceptable range for patient age I recommended that this to be repeated in 4-6 weeks just to assure that TSH is not further rising and we caught this level in the rising phase This is especially with the new diagnosis of iron deficiency as patient could have some problem with absorption as well 4. Hypertension Blood pressure has been stable 5. Possible dementia Patient did quite well on the quick recall test She has microvascular disease the CT of the brain Neurologic exam is nonfocal no rigidity no involuntary movements Once we correct sodium patient will be reevaluated and I would defer patient for neurological follow-up was on outpatient basis Speech therapist consulted for cognitive evaluation 6. Anemia This has been stable Hemoglobin in PCP office earlier this week was 10, here was 11 Iron level was low which which has been replaced to PCP B12 normal Given the mild elevation of MCV patient should have further investigation including any possibility of underlying MDS She will follow with us with PCP
[2019-02-11 11:02] LABS: HCT 33.9 % (34.0-46.0); HGB 10.8 gm/dL (11.4-16.0); MCH 33.1 pg (25.0-35.0); MCHC 31.8 g/dL (31.0-37.0); MCV 104.2 fL (80.0-100.0); Macrocytosis Slight; Mean Platelet Volume 8.5; Platelet Count 539 k/uL (150-450); RBC 3.25 m/uL (3.80-5.40); RDW 12.8 % (11.5-15.5); WBC 7.5 k/uL (3.8-10.6)
[2019-02-11 11:05] LABS: ALT 17 U/L (4-34); Creatine Kinase 23 U/L (30-135)
[2019-02-11 14:00] VITALS: BP 125/71; PULSE 97; TEMP 97.6
[2019-02-11 16:12] VITALS: RESP 18
--- NOTE | 2019-02-12 08:43 | P.DS ---
Providers Date of admission: 02/09/19 15:28 Attending physician: Albert Murrieta MD Consults: 02/09/19 15:30 Consult Physician Routine Consulting Provider: Pan Castro Consult Reason/Comments: conjunctivitis Do you want consulting provider notified?: Yes 02/09/19 16:27 Consult Physician Routine Consulting Provider: Darius Zepeda Consult Reason/Comments: hyponatremia Do you want consulting provider notified?: Yes Primary care physician: Hua Estrella [facility] Course: Date of admission: 02/09/2019 Date of discharge 02/11/2019 Consultants: Dr. Zepeda from nephrology Admission diagnoses: Generalized weakness Hyponatremia Discharge diagnoses: 1. Hyponatremia 2. Anterior uveitis Other chronic condition: Iron deficiency anemia Hypothyroidism Hypertension Osteoarthritis Reason for admission: This is a very pleasant 78-year-old female who was brought in by family due to complain of generalized weakness and mild confusion in form of forgetfulness. No fever chills or lethargy described. No recent URI like illness or diarrhea. The symptoms been going on for about a week or so. Patient was recently diagnosed with iron deficiency anemia in her primary care physician office and started on iron supplementation. Patient also developed a few days prior to the admission redness of her both eyes. On admission it was noted that her sodium was 126 with stable otherwise h emoglobin and normal white cell count. Chest x-ray was unremarkable. CT of the head showed microvascular disease. Patient review of systems and physical exam was nonfocal on admission and she was admitted for further evaluation Hospital course: 1. Hyponatremia Suspect combination of increased free water intake with decreased solute intake and SIADH Patient was initially started on normal saline. Lisinopril was held. Nephrology evaluated the patient. Workup included:: urine and serum osmolarity Urine sodium of 42 TSH 6 Morning cortisol 17 Uric acids 3 Aldosterone/renin activity: Pending Further evaluation showed that patient reported stool. Taking low-protein diet and he also had excessive water intake trying to keep her hydrated With normal saline sodium improved from 126-128. At that point nephrology recommended discontinuing IV fluids and starting free water restriction of 1200 mL and starting an sure 3 times a day and increase protein intake Subsequently sodium improved to 130-131 range. Symptomatically patient significantly improved. Energy level improved in comparison resolved. Patient and patient's family wanted patient to be discharged to go home although we were debating if patient would need extra day in the hospital. Nephrology was contacted and they clear patient for discharge with close follow-up in their office next week. Patient potassium was in the range of 5.1-5.4. Hence her lisinopril was discontinued. 2. Anterior uveitis ophthalmology evaluated the patient started on prednisolone eyedrops with remarkable improvement of her symptoms and in the resolution of redness Ophthalmology recommended follow-up in their office in one week Other blood work: B12 800 Syphilis screen negative CRP 49 Sed rate 90 Recommendations for discharge: Recommendations below were discussed in detail with the patient and patient's and daughter who were present in the room and took detailed notes of these instructions and they were also placed in the discharge paperwork 1. BMP in 2-3 days, patient and patient's family in the room instructed to contact PCP or nephrology office for this 2. Follow-up in PCPs office in 2-3 days: Patient will need repeat CRP and sed rate in 1-2 weeks and potentially see a junior designer 3. Follow-up with ophthalmology in one week 4. Follow-up with nephrology in 1 week. Asked patient to do blood work prior to going to nephrology office. 5. Given anterior uveitis on presentation, recently diagnosed anemia, hyponatremia and significantly elevated CRP and sedimentation rate, we recommended patient to be evaluated for rheumatological diseases, inflammatory bowel disease or occult malignancies Recommended patient to have age and gender appropriate cancer screening. She is scheduled for colonoscopy through PCP office. Recommend obtaining CT of the chest abdomen and pelvis to PCP office. Patient has history of smoking. Recommend following up with junior designer to exclude any rheumatological diseases. Recommend evaluating for possible inflammatory bowel disease. 6. Regarding hyponatremia, patient was instructed to decrease free water intake at home and to increase protein intake by drinking 2-3 Ensures a day, eat more meat, eggs or milk products. Please note that the patient did not have any focal complaints like headaches vision changes jaw claudications chest or abdominal pain, muscle aches, joint aches, joint swelling or morning stiffness no hematuria and no protein in the urine no abdominal pain no diarrheas no blood in the stool hence I instructed patient to obtain about follow-ups and further workup on outpatient basis especially in view that family and the patient did not wish to stay further in the hospital to be monitored for another 24 hours. I explained to the patient and patient family my great concern that the patient might have underlying malignancy or significant rheumatological disease that's currently still occult and not presenting with much of the symptoms and that's why I urged him to have a close follow-up with her PCP and see a junior designer. For discharge with discontinued lisinopril and advised patient not to take any [id number] medications. More than 55 minutes were spent on this discharge Patient Condition at Discharge: Fair Plan - Discharge Summary Discharge Rx Participant: No New Discharge Prescriptions: New Artificial Tears-Hypromellose [Artificial Tear Drops] 1 drops BOTH EYES QID PRN 7 Days #1 bottle PRN Reason: Dry Eye(S) prednisoLONE ACETATE 1% OPHTH [Pred Forte 1%] 1 drops LEFT EYE Q6HR #7 ml Continue Levothyroxine Sodium [Synthroid] 150 mcg PO DAILY Fluticasone/Salmeterol [Advair 100-50 Diskus] 1 puff INHALATION RT-BID Ascorbic Acid [Vitamin C] 500 mg PO DAILY PRN PRN Reason: Cold Symptoms Magnesium Citrate 150mg 150 mg PO DAILY Albuterol Inhaler [Ventolin Hfa Inhaler] 2 puff INHALATION RT-Q4H PRN PRN Reason: Shortness Of Breath Discontinued Papaya [Papaya Enzyme] 1 tab PO AC-TID Lisinopril [Zestril] 20 mg PO DAILY Wheat Dextrin [Benefiber] 1 packet PO DAILY Ibuprofen [Motrin] 800 mg PO TID PRN PRN Reason: Pain Discharge Medication List Albuterol Inhaler [Ventolin Hfa Inhaler] 2 puff INHALATION RT-Q4H PRN 02/09/19 [History] Ascorbic Acid [Vitamin C] 500 mg PO DAILY PRN 02/09/19 [History] Fluticasone/Salmeterol [Advair 100-50 Diskus] 1 puff INHALATION RT-BID 02/09/19 [History] Levothyroxine Sodium [Synthroid] 150 mcg PO DAILY 02/09/19 [History] Magnesium Citrate 150mg 150 mg PO DAILY 02/09/19 [History] Artificial Tears-Hypromellose [Artificial Tear Drops] 1 drops BOTH EYES QID PRN 7 Days #1 bottle 02/11/19 [Rx] prednisoLONE ACETATE 1% OPHTH [Pred Forte 1%] 1 drops LEFT EYE Q6HR #7 ml 02/11/19 [Rx] Follow up Appointment(s)/Referral(s): Pan Castro MD [STAFF PHYSICIAN] - 1 Week Hua Estrella MD [Primary Care Provider] - 1-2 days Darius Zepeda DO [STAFF PHYSICIAN] - 1 Week Patient Instructions/Handouts: Iritis (DC), Hyponatremia (DC) Activity/Diet/Wound Care/Special Instructions: Follow up with PCP in 2 days. Check BMP (Sodium) in 2-3 days with PCP or call nephrology office Check sedimentation and CRP in 1-2 weeks as discussed Check TSH in 4 weeks ask PCP about rheumatlogist Limit water intake to max 1200 ml Take Ensure 1-2 x a day or more Increase protein intake Dont take Lisinopril for a week due to low na and follow up with your PCP about HTN Avoid over the counter supplements for now low potassium diet Discharge Disposition: HOME SELF-CARE
== END 2019-02-11 18:28 | disposition home or self-care (01) | DRG 641 ==
LOC: EC 12:27 → 6NMEDSUR 15:28
PROVIDERS: ADMIT Hospitalist; ATTEND Hospitalist
DX: E87.1 Hypo-osmolality and hyponatremia (principal); H20.9 Unspecified iridocyclitis; D50.9 Iron deficiency anemia, unspecified; E03.9 Hypothyroidism, unspecified; E86.1 Hypovolemia; E87.5 Hyperkalemia; H10.9 Unspecified conjunctivitis; I10 Essential (primary) hypertension; I73.9 Peripheral vascular disease, unspecified; J45.909 Unspecified asthma, uncomplicated; M19.90 Unspecified osteoarthritis, unspecified site; Z79.890 Hormone replacement therapy; Z79.899 Other long term (current) drug therapy; Z83.3 Family history of diabetes mellitus; Z87.891 Personal history of nicotine dependence; Z96.652 Presence of left artificial knee joint; Z88.2 Allergy status to sulfonamides; Z91.040 Latex allergy status
CPT/HCPCS: 36415; 70450; 71045; 80048; 80306; 81003; 82088; 82533; 82550; 82607; 83036; 83605; 83735; 83930; 83935; 84133; 84244; 84300; 84439; 84443; 84460; 84550; 85025; 85027; 85652; 86140; 86780; 87070; 87205; 87252; 87498; 87529; 87798; 96360; 99285

== ENCOUNTER → 2019-02-16 | Outpatient (CLI) | payer MEDICARE ==
--- NOTE | 2019-02-17 12:01 | ECHOF ---
Referral Reason:R06.09 Other forms of dyspnea MEASUREMENTS -------- HEIGHT: 127.0 cm WEIGHT: 72.6 kg BP: RVIDd: 3.5 cm (< 3.3) IVSd: 1.2 cm (0.6 - 1.1) LVIDd: 3.5 cm (3.9 - 5.3) LVPWd: 1.2 cm (0.6 - 1.1) IVSs: 1.3 cm LVIDs: 2.7 cm LVPWs: 1.2 cm LA Diam: 3.9 cm (2.7 - 3.8) LAESV Index (A-L): 24.13 ml/m MV EXCURSION: 20.477 mm (> 18.000) MV EF SLOPE: 72 mm/s (70 - 150) MV E Pete: 0.48 m/s MV DecT: 234 ms MV A Pete: 1.05 m/s MV E/A Ratio: 0.46 RAP: 5.00 mmHg RVSP: 31.19 mmHg FINDINGS -------- Sinus rhythm. This was a technically good study. The left ventricular size is normal. There is mild concentric left ventricular hypertrophy. Overa ll left ventricular systolic function is normal with, an EF between 55 - 60 %. The diastolic fillin g pattern is normal for the age of the patient 6.93. The right ventricle is normal in size. The left atrial size is normal. The right atrial size is normal. There is mild aortic valve sclerosis. There is no evidence of aortic regurgitation. Mild mitral annular calcification present. Mild mitral regurgitation is present. Mild tricuspid regurgitation present. Right ventricular systolic pressure is normal at < 35 mmHg. There is no evidence of pulmonary hypertension. There is no pulmonic regurgitation present. The aortic root size is normal. Echo free space indicative of a pericardial fat pad. CONCLUSIONS -------- 1. Sinus rhythm. 2. This was a technically good study. 3. The left ventricular size is normal. 4. There is mild concentric left ventricular hypertrophy. 5. Overall left ventricular systolic function is normal with, an EF between 55 - 60 %. 6. The diastolic filling pattern is normal for the age of the patient 6.93 7. The right ventricle is normal in size. 8. The left atrial size is normal. 9. The right atrial size is normal. 10. There is mild aortic valve sclerosis. 11. Mild mitral annular calcification present. 12. Mild mitral regurgitation is present. 13. Mild tricuspid regurgitation present. 14. Right ventricular systolic pressure is normal at < 35 mmHg. 15. There is no evidence of pulmonary hypertension. 16. There is no pulmonic regurgitation present. 17. The aortic root size is normal. 18. Echo free space indicative of a pericardial fat pad. [employer]: Bertha Suarez RDCS
== END | disposition home or self-care (01) ==
LOC: RADECHMAIN 08:31
PROVIDERS: ATTEND Family Medicine
DX: I08.3 Combined rheumatic disorders of mitral, aortic and tricuspid valves (principal); I70.8 Atherosclerosis of other arteries
CPT/HCPCS: 93306